=== PATIENT | male | born 1980 | race Hispanic/Latino ===

== ENCOUNTER 2025-05-19 20:28 | Emergency (ER) | payer SELFPAY ==
[2025-05-19] MEDS ORDERED: Ketorolac Tromethamine 30 MG (1 mL) VIAL ONE (20:45)
[2025-05-19] MEDS ORDERED: Cyclobenzaprine 10 MG TAB ONE (21:21)
== END 2025-05-20 00:04 | disposition home or self-care (01) ==
LOC: ERS 20:28
DX: M43.17 Spondylolisthesis, lumbosacral region (principal); E11.9 Type 2 diabetes mellitus without complications; Z79.84 Long term (current) use of oral hypoglycemic drugs; Z79.4 Long term (current) use of insulin
CPT/HCPCS: 72040; 72100; 96372; 99283; J1885